=== PATIENT | male | born 1995 | race Two or more races ===

== ENCOUNTER 2016-10-17 20:20 | Emergency (ER) | payer MEDICAID ==
[~2016-10-17] VITALS: Ht 162.6 cm; Wt 61.2 kg
[2016-10-17 21:13] LABS: Basophils # (auto) 0.1 uL; Basophils % (auto) 0.7 % (0.0-2.0); CONDITION Y; Eosinophils # (auto) 0.1 uL; Eosinophils % (auto) 0.9 % (0.0-7.0); Hematocrit 46.5 % (41.0-53.0); Hemoglobin 15.9 g/dL (13.5-17.5); Lymphocytes # (auto) 2.3 uL; Mean Corpuscular Hemoglobin 31.6 pg (28.0-32.0); Mean Corpuscular Hgb Conc. 34.1 g/dL (32.0-36.0); Mean Corpuscular Volume 92.7 fL (80.0-100.0); Mean Platelet Volume 7.9 fL (7.4-10.4); Monocytes # (auto) 0.7 uL; Monocytes % (auto) 8.8 % (0.0-12.0); Neutrophils # (auto) 4.9 uL; Neutrophils % (auto) 60.6 % (37.0-80.0); Platelet Count (auto) 257 10^3/uL (140-450); Red Cell Distribution Width 13.2 % (11.6-16.0); White Blood Cell 8.1 10^3/uL (4.4-10.8)
[2016-10-17 21:18] LABS: Albumin 3.9 g/dL (3.4-5.0); BUN/Creatinine Ratio 17.4; Calcium 8.2 mg/dL (8.5-10.1); Potassium 3.2 mmol/L (3.5-5.1)
[2016-10-17 21:23] LABS: Bilirubin, Total 0.4 mg/dL (0.2-1.0); Total Protein 7.4 g/dL (6.4-8.2)
[2016-10-17 21:42] LABS: Urine RBC None Seen /hpf (0 - 3)
[2016-10-17 21:56] LABS: Urine Bilirubin Negative (Negative); Urine Blood Negative /uL (Negative); Urine Glucose Normal (Normal); Urine Ketone Negative (Negative); Urine Nitrite Negative (Negative); Urine Urobilinogen Normal (Negative); Urine pH 6.5 (5.0-8.0)
[2016-10-17 22:51] LABS: Urine Color Straw (Yellow)
[2016-10-17] MEDS ORDERED: THIAMINE HCL 100 MG/ML 2ML VIAL ONE (23:30)
[2016-10-17] MEDS ORDERED: MVI in SODIUM CHLORIDE 0.9% 1,010 ML ONE (23:36)
[2016-10-17 23:48] LABS: Acetaminophen < 2.0 ug/mL (10-30)
[2016-10-17 23:50] LABS: Salicylate < 1.7 mg/dL (2.8-20.0)
[2016-10-18 06:00] VITALS: BP 110/64
[2016-10-18] MEDS ORDERED: THIAMINE INJ 100 MG, MULTIPLE VITAMIN 10 ML, FOLIC ACID 1 MG, MAGNESIUM SULF SDV 50% 8 ... IV SCH ×5 (12:00)
== END 2016-10-18 02:20 | disposition home or self-care (01) ==
LOC: EDBD → ER 20:33
DX: F10.10 Alcohol abuse, uncomplicated (principal); G92 Toxic encephalopathy; F12.10 Cannabis abuse, uncomplicated; R41.82 Altered mental status, unspecified
CPT/HCPCS: 36415; 51702; 80053; 80307; 80320; 80329; 81001; 85025; 94761; 96365; 99285; J3411; J3475; J7030

== ENCOUNTER 2016-10-18 13:26 | Emergency (ER) | payer MEDICAID ==
[~2016-10-18] VITALS: Ht 152.4 cm; Wt 61.2 kg
[2016-10-18 16:44] VITALS: BP 129/33
== END 2016-10-18 16:46 | disposition home or self-care (01) ==
LOC: EDBD 13:26 → ER 13:26
DX: N45.1 Epididymitis (principal); F12.10 Cannabis abuse, uncomplicated
CPT/HCPCS: 76870; 81002